=== PATIENT | female | born 2000 | race Caucasian/White ===

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

== ENCOUNTER 2018-02-07 00:32 | Emergency (ER) | payer BC ==
[~2018-02-07] VITALS: Ht 165.1 cm; Wt 56.2 kg
[~2018-02-07 00:32] MED LIST changes: -CEPH500C PO; -SULF800T23 PO
[2018-02-07 00:37] VITALS: TEMP 37.8; Ht 165.1 cm; Wt 56.2 kg
[2018-02-07] MEDS ORDERED: IBUPROFEN 600 MG TAB PO STA (00:56)
[2018-02-07] MEDS ORDERED: ACETAMINOPHEN 500 MG TAB PO STA (00:56)
[2018-02-07 02:35] VITALS: BP 99/52; PULSE 90; O2SAT 96
--- NOTE | 2018-02-07 04:10 | EMERGENCY ROOM VISIT NOTE ---
ED Visit Note First contact with patient: 00:46 CHIEF COMPLAINT: Sore throat HISTORY OF PRESENT ILLNESS: This 17-year-old female patient presents to the emergency department complaining of increasing pain in the throat for the past several hours, gradual in onset, worse with swallowing. They rate the pain as sharp and 7/10. They are able to swallow. The patient has had a low-grade fever at home today. No rash. Denies any posterior neck pain or stiffness. No difficulty breathing. Symptoms came on gradually. There has been no chest pain, no abdominal pain, no nausea or vomiting. Patient denies any cough, rhinorrhea, congestion, or ear pain. The patient has taken nothing for their symptoms. REVIEW OF SYSTEMS: A 6 system review of systems was completed with pertinent positives and negatives in the HPI. ALLERGIES: No known allergies MEDICATIONS: No chronic medications PMH: Otherwise healthy SOCIAL HISTORY: Employed and lives with family PHYSICAL EXAM: Vital Signs: Reviewed Nurse's notes GENERAL: White female, in no acute distress, non toxic in appearance, well developed, well nourished. MENTAL STATUS: Alert and oriented to person place and time. SKIN: Clear and dry, no eruptions, or rashes. No cyanosis, no petechiae. EARS: External auditory canals clear, tympanic membrane pearly shukla without erythema or effusion bilaterally. EYES: Pupils equal round and reactive to light and accommodation. Conjunctivae without injection, sclerae without icterus. Extraocular movements intact. NOSE: Patent, turbinates inflamed with no discharge. No sinus tenderness. MOUTH: Mucous membranes moist. Left tonsil is erythematous and 2+ enlarged. Right tonsil appears normal.. The Pharynx is inflamed and slightly swollen. Pharynx without postnasal drip. Uvula is midline and no abscess is seen. NECK: Supple without nuchal rigidity. Anterior cervical lymphadenopathy without posterior cervical, or auricular, or submandibular lymphadenopathy. HEART: Regular rate and rhythm without murmurs gallops or rubs. LUNGS: Clear to auscultation bilaterally without wheezes, rales or rhonchi. ABDOMEN: Positive bowel sounds x 4. Normal tympanic percussion. Soft, nontender, without masses or organomegaly. ED COURSE: I examined the patient who appears to have a sore throat. She was given ibuprofen and Tylenol here in the department. A rapid strep test was negative. A backup culture was sent. The patient was instructed on the plan below and was discharged home in good condition. Current/Historical Medications Scheduled [Oxy Face Wash], 1-2 APPLN TOP DAILY Allergies Coded Allergies: No Known Allergies (Unverified , 07/21/17) Vital Signs Date Time Temp Pulse Resp B/P (MAP) Pulse Ox O2 Delivery O2 Flow Rate FiO2 02/07/18 02:35 90 18 99/52 96 02/07/18 00:39 97 Room Air 02/07/18 00:37 37.8 103 16 131/75 97 Room Air Medications Administered Medications (Trade) Dose Ordered Sig/Jaswant Route Start Time Stop Time Status Last Admin Dose Admin Acetaminophen (Tylenol Tab) 1,000 mg NOW STAT PO 02/07/18 00:56 02/07/18 00:58 DC 02/07/18 01:10 1,000 MG Ibuprofen (Motrin Tab) 600 mg NOW STAT PO 02/07/18 00:56 02/07/18 00:58 DC 02/07/18 01:09 600 MG Departure Information Impression Primary Impression: Sore throat Dispostion Home / Self-Care Condition GOOD Forms HOME CARE DOCUMENTATION FORM, Work Instructions, Additional Instructions: Patient was seen and evaluated today in the emergency department fo medical care. Return to work on 02/10/2018. Please excuse. IMPORTANT VISIT INFORMATION Patient Instructions My [facility] Additional Instructions You were seen and evaluated today on an emergency basis only. This is not a substitute for, or an effort to provide, complete comprehensive medical care. It is not possible to recognize and treat all injuries or illnesses in a single emergency department visit. For this reason it is recommended that you followup with your primary care physician next week with any ongoing or persistent symptoms. For baseline pain relief you may alternate ibuprofen and acetaminophen every 4 hours for pain control. Take 600 mg ibuprofen (Advil) and then 4 hours later take 1000 mg acetaminophen (Tylenol). Do not take more than 3000 mg acetaminophen in a single day. You are welcome to return to the emergency department anytime with new, worsening, or concerning symptoms. Work Instructions Additional Work Instructions: Patient was seen and evaluated today in the emergency department for medical care. Return to work on 02/10/2018. Please excuse.
[2018-02-08] MEDS ORDERED: CLIN300C2 PO (00:25)
[2018-02-08] MEDS ORDERED: PRED50TA PO (00:25)
== END 2018-02-07 02:36 | disposition home or self-care (01) ==
LOC: C.EDB 00:33
DX: J02.9 Acute pharyngitis, unspecified (principal)

== ENCOUNTER 2018-02-07 21:56 | Emergency (ER) | payer BC ==
[~2018-02-07] VITALS: Ht 165.1 cm; Wt 55.6 kg
[2018-02-07 22:02] VITALS: Ht 165.1 cm; Wt 55.6 kg
[2018-02-07] MEDS ORDERED: ACETAMINOPHEN 500 MG TAB PO STA (22:29)
[2018-02-07] MEDS ORDERED: DEXAMETHASONE SOD INJ 4 MG/ML VIAL IV STA (22:29)
[2018-02-07] MEDS ORDERED: MAGIC SWIZZLE PO STA (22:29)
[2018-02-07] MEDS ORDERED: KETOROLAC TROMETHAMINE 30 MG/ML VIAL IV STA (22:29)
[2018-02-07] MEDS ORDERED: CLINDAMYCIN IV 900 MG in DEXTROSE 5% 100ML 100 ML IV ONE (22:30)
[2018-02-07] MEDS ORDERED: SODIUM CHLORIDE 0.9% 1000ML 1,000 ML IV ONE (22:30)
--- NOTE | 2018-02-07 22:34 | EMERGENCY ROOM VISIT NOTE ---
History First contact with patient: 22:17 Chief Complaint: SORETHROAT Stated Complaint: SWOLLEN TONSILS,PAIN,FEVER,SLIGHT DIFFICULTY BREAT History of Present Illness The patient is a 17 year old female who presents to the Emergency Room with complaints of a severe sore throat that started yesterday morning. This patient was seen in the emergency department last night for the same symptoms. She was swabbed for strep. It was negative. She was instructed to take ibuprofen and Tylenol. The patient took ibuprofen 400 mg a few hours ago with no relief. The pain is getting severe. She has associated body aches and a headache. She also feels like she is running a fever, she did not take her temperature at home. Review of Systems 10 system review performed and negative unless noted in HPI or below Past Medical/Surgical History Medical Problems: (1) No significant past medical history Social History Smoking Status: Never Smoker Alcohol Use: none Drug Use: none Marital Status: single Housing Status: lives with family Occupation Status: [employer] student Current/Historical Medications Scheduled Clindamycin Hcl (Cleocin), 300 MG PO QID Prednisone (Prednisone), 50 MG PO DAILY Physical Exam Vital Signs Date Time Temp Pulse Resp B/P (MAP) Pulse Ox O2 Delivery O2 Flow Rate FiO2 02/08/18 00:34 96 18 112/68 98 Room Air 02/07/18 23:50 37.2 91 20 113/60 98 Room Air 02/07/18 22:02 38.6 113 20 114/74 96 Room Air Physical Exam GENERAL: 17-year-old female, in moderate discomfort,, in no acute distress, nondiaphoretic, well-developed well-nourished. SKIN: The skin was without rashes, erythema, edema, or bruising. HEAD: Normocephalic atraumatic. EARS: External auditory canals clear, tympanic membranes pearly shukla without erythema or effusion bilaterally. EYES: . Conjunctivae without injection, sclerae without icterus. MOUTH: Mucous membranes slightly dry. The tonsils are moderately enlarged, left greater than right. There is significant amount of white exudate particularly on the left tonsil. There is also some brown exit noted on this tonsil. There is no soft palate involvement. Uvula midline. Airway patent. Tongue does not deviate. There is no trismus. No hot potato voice. NECK: Supple without nuchal rigidity. Lymphadenopathy noted in the anterior cervical chain bilaterally. Cervical spine is nontender. No JVD. HEART: Regular rate and rhythm without murmurs gallops or rubs. LUNGS: Clear to auscultation bilaterally without wheezes, rales or rhonchi. No accessory muscle use. ABDOMEN: Positive bowel sounds x 4.Soft, nontender, without organomegaly. No guarding or rebound tenderness. MUSCULOSKELETAL: No muscle atrophy, erythema, or edema noted. Strength 5/5 throughout. NEURO: Patient was alert and oriented to person place and time. Normal sensation to touch. No focal neurological deficits. Medical Decision & Procedures Laboratory Results 02/07/18 22:35 Red Blood Count 4.37, Mean Corpuscular Volume 77.6, Mean Corpuscular Hemoglobin 25.4, Mean Corpuscular Hemoglobin Concent 32.7, Mean Platelet Volume 9.3, Neutrophils (%) (Auto) 87.7, Lymphocytes (%) (Auto) 3.1, Monocytes (%) (Auto) 8.8, Eosinophils (%) (Auto) 0.0, Basophils (%) (Auto) 0.1, Neutrophils # (Auto) 19.86, Lymphocytes # (Auto) 0.71, Monocytes # (Auto) 2.00, Eosinophils # (Auto) 0.00, Basophils # (Auto) 0.03 02/07/18 22:35 Test 02/07/18 22:35 White Blood Count 22.67 K/uL (4.8-10.8) Red Blood Count 4.37 M/uL (4.2-5.4) Hemoglobin 11.1 g/dL (12.0-16.0) Hematocrit 33.9 % (37-47) Mean Corpuscular Volume 77.6 fL (80-100) Mean Corpuscular Hemoglobin 25.4 pg (25-34) Mean Corpuscular Hemoglobin Concent 32.7 g/dl (32-36) Platelet Count 285 K/uL (130-400) Mean Platelet Volume 9.3 fL (7.4-10.4) Neutrophils (%) (Auto) 87.7 % Lymphocytes (%) (Auto) 3.1 % Monocytes (%) (Auto) 8.8 % Eosinophils (%) (Auto) 0.0 % Basophils (%) (Auto) 0.1 % Neutrophils # (Auto) 19.86 K/uL (1.4-6.5) Lymphocytes # (Auto) 0.71 K/uL (1.2-3.4) Monocytes # (Auto) 2.00 K/uL (0.11-0.59) Eosinophils # (Auto) 0.00 K/uL (0-0.5) Basophils # (Auto) 0.03 K/uL (0-0.2) RDW Standard Deviation 45.7 fL (36.4-46.3) RDW Coefficient of Variation 16.0 % (11.5-14.5) Immature Granulocyte % (Auto) 0.3 % Immature Granulocyte # (Auto) 0.07 K/uL (0.00-0.02) Urine Test NEG (NEG) Anion Gap 7.0 mmol/L (3-11) Est Creatinine Clear Calc Drug Dose 77.9 ml/min Estimated GFR () 92.3 Estimated GFR (Non- 79.7 BUN/Creatinine Ratio 7.5 (10-20) Calcium Level 8.8 mg/dl (8.5-10.1) Total Bilirubin 0.8 mg/dl (0.2-1) Aspartate Amino Transf (AST/SGOT) 11 U/L (15-37) Alanine Aminotransferase (ALT/SGPT) 16 U/L (12-78) Alkaline Phosphatase 55 U/L (45-117) Total Protein 8.0 gm/dl (6.4-8.2) Albumin 3.9 gm/dl (3.4-5.0) Globulin 4.1 gm/dl (2.5-4.0) Albumin/Globulin Ratio 1.0 (0.9-2) Monoscreen NEG (NEG) Medications Administered Medications (Trade) Dose Ordered Sig/Jaswant Route Start Time Stop Time Status Last Admin Dose Admin Sodium Chloride 1,000 ml @ 999 mls/hr Q1H1M ONCE IV 02/07/18 22:30 02/07/18 23:30 DC 02/07/18 22:40 999 MLS/HR Ketorolac Tromethamine (Toradol Inj) 30 mg NOW STAT IV 02/07/18 22:29 02/07/18 22:31 DC 02/07/18 22:43 30 MG Clindamycin Phosphate 900 mg/ Dextrose 106 ml @ 100 mls/hr ONE ONCE IV 02/07/18 22:30 02/07/18 23:33 DC 02/07/18 22:54 100 MLS/HR Acetaminophen (Tylenol Tab) 1,000 mg NOW STAT PO 02/07/18 22:29 02/07/18 22:31 DC 02/07/18 22:41 1,000 MG Dexamethasone Sodium Phosphate (Decadron Inj) 10 mg NOW STAT IV 02/07/18 22:29 02/07/18 22:31 DC 02/07/18 22:40 10 MG ED Course Patient was seen and examined Vital signs including blood pressure were reviewed medications list was verified with patient Labs were obtained, and a saline lock was established The patient was medicated with Toradol 30 mg IV, Tylenol 1 g p.o., Decadron 10 mg IV and Magic swizzle. She was hydrated with 1 L of normal saline. Upon reevaluation, the patient was feeling much better. We discussed the results of her workup. She voiced understanding. She was comfortable being discharged home. The patient was also discussed with my supervising physician who is in agreement with my plan I reviewed discharge instructions the patient. They voiced understanding and had no further questions. Medical Decision Differential diagnosis: Bacterial tonsillitis, peritonsillar abscess, mononucleosis, other viral tonsillitis, This patient is a 17-year-old female returns to the emergency department with a worsening sore throat for the last day. The patient was seen in the emergency department last night. A strep culture was taken. The rapid test was negative. She was instructed to do supportive care and follow-up with her primary care physician. The patient returned today because of the severity of the sore throat and fever. On exam, her left tonsil was significantly enlarged with large amount of exudate. There was however no signs of a peritonsillar abscess systems trismus, swelling of the soft palate or hot potato voice. Her mononucleosis is negative. I believe this is likely a bacterial tonsillitis. She was treated with clindamycin IV in the emergency department. She had fairly good pain relief in the ER, was comfortable that she could tolerate her medications and liquids at home. For this reason, the patient was discharged home, with instructions to return to the emergency department in 24-48 hours for recheck. She agrees to return sooner for any worsening symptoms. This chart was completed in part utilizing [employer] Speech Voice Recognition software. Attempts were made to minimize the grammatical errors, random word insertions, pronoun errors and incomplete sentences. Any formal questions or concerns about the content, text or information contained within the body of this dictation should be directly addressed to the provider for clarification. Medication Reconcilliation Current Medication List: was personally reviewed by me Blood Pressure Screening Patient's blood pressure: Normal blood pressure Impression Primary Impression: Acute bacterial tonsillitis Departure Information Dispostion Home / Self-Care Condition GOOD Prescriptions Prednisone (Prednisone) 50 Mg Tab 50 MG PO DAILY for 4 Days, #4 TAB Prov: Hanna Cohen PA-C 02/08/18 Clindamycin Hcl (CLEOCIN) 300 Mg Cap 300 MG PO QID for 9 Days, #36 CAP Prov: Hanna Cohen PA-C 02/08/18 Referrals No Doctor, Assigned (PCP) Patient Instructions My [facility] Additional Instructions You have been evaluated in the emergency department for severe sore throat. This is likely due to acute bacterial tonsillitis. Please increase fluids over the next several days. Please take the entire course of clindamycin as prescribed. Please eat yogurt twice daily with this medication. Please also take the entire course of prednisone as prescribed Ibuprofen 800 mg and/or Tylenol 1000 mg every 8 hours. You may also alternate these medications for more effective pain relief: Ibuprofen --4 HRS--> Tylenol --4 HRS--> ibuprofen --4 HRS--> Tylenol .... Please return to the emergency department in 24-48 hours for recheck if you are not feeling any better. If you have any new or worsening symptoms such as inability to swallow liquids or medications, please return to the emergency department sooner. It has been a pleasure participating in your care this year Work Instructions Return To Work: 1 day
[2018-02-07 23:01] LABS: BASO % 0.1 %; BASO ABS # 0.03 K/uL (0-0.2); HEMATOCRIT 33.9 % (37-47); HEMOGLOBIN 11.1 g/dL (12.0-16.0); IG# 0.07 K/uL (0.00-0.02); LYMPH % 3.1 %; LYMPH ABS # 0.71 K/uL (1.2-3.4); MEAN CELL VOLUME 77.6 fL (80-100); MEAN CORPUSCULAR HEMOGLOBIN 25.4 pg (25-34); MEAN CORPUSCULAR HGB CONC 32.7 g/dl (32-36); MEAN PLATELET VOLUME 9.3 fL (7.4-10.4); MONO % 8.8 %; NEUT % 87.7 %; NEUT ABS # 19.86 K/uL (1.4-6.5); PLATELET COUNT 285 K/uL (130-400); RED CELL DISTRIBUTION WIDTH SD 45.7 fL (36.4-46.3); WHITE BLOOD COUNT 22.67 K/uL (4.8-10.8)
[2018-02-07 23:23] LABS: ALBUMIN 3.9 gm/dl (3.4-5.0); CALCIUM 8.8 mg/dl (8.5-10.1); CREATININE 1.02 mg/dl (0.60-1.20); POTASSIUM 3.4 mmol/L (3.5-5.1)
[2018-02-07 23:50] VITALS: TEMP 37.2
[2018-02-08] MEDS ORDERED: CLIN300C2 PO (00:25)
[2018-02-08] MEDS ORDERED: PRED50TA PO (00:25)
[2018-02-08 00:34] VITALS: BP 112/68; PULSE 96; O2SAT 98
== END 2018-02-08 00:36 | disposition home or self-care (01) ==
LOC: C.EDB 21:58 → C.EDC 02-08 00:36
DX: J03.90 Acute tonsillitis, unspecified (principal)

== ENCOUNTER 2022-01-13 01:15 | Inpatient (IN) ==
[2022-01-13 01:40] LABS: Appearance Urine Clear (Clear); Bilirubin Urine Negative (Negative); Blood Urine Negative (Negative); Color Urine Yellow; Glucose Urine UA Negative (Negative); Ketones Urine Trace (Negative); Leukocyte Esterase Urine Negative (Negative); Nitrite Urine Negative (Negative); Protein Urine Negative (Negative); Specific Gravity Urine 1.023 (1.000-1.030); Urobilinogen Urine Negative (Negative); pH Urine 6.5 (4.5-7.5)
[2022-01-13 02:01] LABS: Amphetamines+Metham, Urine Neg (Neg); Barbiturates, Urine Neg (Neg); Benzodiazepine, Urine Neg (Neg); Cocaine, Urine Neg (Neg); MDMA (Ecstacy), Urine Neg (Neg); Methadone, Urine Neg (Neg); Opiate, Urine Neg (Neg); Phencyclidine, Urine Neg (Neg)
[2022-01-13] MEDS ORDERED: LIDO/EPINEPHRINE/SOD BICARB 20 ML VIAL ONE (02:13)
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
[2022-01-13] MEDS ORDERED: LORazepam 1 MG TAB SL STA (03:19)
[2022-01-13 03:30] LABS: Basophils # (auto) 0.05 K/uL (0-0.2); Basophils % (auto) 0.5 %; Eosinophils # (auto) 0.11 K/uL (0-0.5); Eosinophils % (auto) 1.2 %; Hematocrit (blood only) 41.4 % (37-47); Hemoglobin 13.8 g/dL (12.0-16.0); Immature Granulocytes # (auto) 0.01 K/uL (0.00-0.02); Immature Granulocytes % (auto) 0.1 %; Lymphocytes # (auto) 2.29 K/uL (1.2-3.4); Lymphocytes % (auto) 24.7 %; Mean Corpuscular Hemoglobin 29.1 pg (25-34); Mean Corpuscular Hgb Conc 33.3 g/dL (32-36); Mean Corpuscular Volume 87.2 fL (80-100); Mean Platelet Volume 9.4 fL (7.4-10.4); Monocytes # (auto) 0.66 K/uL (0.11-0.59); Monocytes % (auto) 7.1 %; Neutrophils # (auto) 6.15 K/uL (1.4-6.5); Neutrophils % (auto) 66.4 %; Platelet Count 226 K/uL (130-400); RDW Coefficient of Variation 12.6 % (11.5-14.5); RDW Standard Deviation 40.4 fL (36.4-46.3); Red Blood Count 4.75 M/uL (4.2-5.4); White Blood Count 9.27 K/uL (4.8-10.8)
[2022-01-13 03:48] LABS: Pregnancy Test, Serum Negative (Negative)
[2022-01-13 03:52] LABS: Acetaminophen < 3 ug/ml (10-30); Salicylate < 3.0 mg/dl (3.0-30)
[2022-01-13 03:53] LABS: Albumin Globulin Ratio 1.8 (0.9-2); Albumin Level 4.6 gm/dl (3.4-5.0); BUN Creatinine Ratio 10.1 (10-20); Bilirubin,Total 0.6 mg/dl (0.2-1.0); Calcium 9.3 mg/dl (8.5-10.1); Creatinine Clr Calc Pharmacy 99.7 ml/min; Est GFR (African American) 122.3 ml/min; Est GFR (Non-African American) 105.5 ml/min; Globulin 2.5 gm/dl (2.5-4.0); Potassium 3.8 mmol/L (3.5-5.1); Total Protein 7.1 gm/dl (6.0-8.3)
[2022-01-13 08:54] VITALS: O2SAT 99
--- NOTE | 2022-01-13 09:23 | Emergency Department Note ---
ED Visit Note The patient was accepted at [facility] . : Depression Qualifiers: Depression Type: unspecified Qualified Code(s): F32.A - Depression, unspecified
[2022-01-13] MEDS ORDERED: BISMUTH SUBSALICYLATE LIQD 236 ML PO PRN (09:24)
[2022-01-13] MEDS ORDERED: ALUMINUM/MAGNESIUM SUSP 30 ML UDC PO PRN (09:24)
[2022-01-13] MEDS ORDERED: hydrOXYzine HCl 25 MG TAB PO PRN (09:24)
[2022-01-13] MEDS ORDERED: MAGNESIUM HYDROXIDE SUSP 30 ML UDC PO PRN (09:24)
[2022-01-13] MEDS ORDERED: SODIUM CHLORIDE 0.65% NA SOLN 45 ML (OCEAN) PRN (09:24)
[2022-01-13] MEDS ORDERED: ACETAMINOPHEN 325 MG TAB PO PRN (09:24)
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
[2022-01-13] MEDS: hydrOXYzine HCl 25 MG TAB PO PRN (21:38)
[2022-01-14] MEDS: FLUoxetine HCL 10 MG CAP PO SCH (09:47)
--- NOTE | 2022-01-14 14:02 | Psychiatric Progress Note ---
Date of Service January 14, 2022 Impression / Recommendations Impression The patient is a 21 year old with a history of MDD, CECY with panic attacks, OCD, PTSD and self-harm who was admitted for suicide attempt via cutting requiring sutures. Diagnostically consistent with prior established diagnoses, with worsening of MDD and PTSD in the context of recent stressors and inability to attend therapy due to insurance changes. The patient is deemed unstable and requires psychiatric hospitalization for diagnostic clarification, safety and stabilization, medication management and development of further coping skills. 01/14/22: Adjusting to the unit but experiencing significant social anxiety as well as ongoing depression and anxiety and today's date brings up significant trauma memories and PTSD. Tolerating fluoxetine initiation. Will start prazosin tonight to see if this helps with reducing nightmares and with sleep. (1) Multiple lacerations: (2) Suicidal ideation: (3) Major depressive disorder, recurrent episode with anxious distress: (4) Generalized anxiety disorder with panic attacks: (5) Obsessive compulsive disorder: (6) Post traumatic stress disorder (PTSD): 01/14/22: Started fluoxetine 10mg qd, prazosin 1mg qhs. Working on getting her re-established with outpatient therapy. 01/13/22: The patient was admitted to the [facility] ([facility] mental health unit) on q15 min checks (behavioral with suicide precautions) for safety. The patient will participate in group, recreational, and milieu therapies and will be offered additional individual and family sessions as clinically appropriate. -fluoxetine 10mg qd -prazosin 1mg qhs Inventory Assets Strengths: motivated to engage with outpatient therapy, employed, no substance use Needs: additional coping skills, medication management Risk Factors Assessment Male: No : Yes Do You Have Access To A Gun?: No Health Problems: No Mental Health Diagnoses: Yes Substance Use Disorders: No Previous Attempt: Yes Previous Attempt; Didn't Tell Anyone: Yes Family History of Suicide: No Previous Psychiatric Hospitalization: No Hopelessness: Yes Smoker: No Protective Factors Assessment Employed: Yes ([employer]) Stable Relationships: Yes Supportive Family: No Interval History Identifying Information RUBENS ELLISON is a 21-year-old woman who currently lives in [place] with her roommate and his family, has a history of self-harm, depression, CECY, OCD, PTSD and was admitted on 01/13/22 08:49 on a 201 voluntary commitment for suicide attempt via cutting with lacerations requiring sutures. Chief Complaint "I'm pretty overwhelmed". Review of Systems Sleep Information Total Hours of Sleep: 6 Meal Information Percent Meal Consumed - Breakfast: 80 Percent Meal Consumed - Lunch: 85 Percent Meal Consumed - Dinner: 100 Subjective Subjective Patient was seen & assessed and interval progress reviewed with treatment team nursing and social work. Tearful last night regarding stressors of finances and limited housing options. Attending groups. Took prn vistaril last night for help with sleep. Today is anniversary related to past trauma which contributes to experiencing a lot of different emotions. Continues to feel very anxious and depressed but denies urges for self-harm and denies SI today. Started fluoxetine and no side effects so far. Nursing helped her change and re-bandage lacerations which are starting to heal but still open with some serosanguineous drainage. She denies any pain or redness related to lacerations except some stinging with ceratin movements of her forearm. Physical Exam Psychiatric Orientation: alert and oriented x 3 Apperance: appropriately dressed and appropriately groomed Eye Contact: + fair eye contact Motor Behavior: steady gait and station and no abnormal motor movements Speech: normal rate/rhythm/volume of speech Affect: + depressed affect, + anxious affect and + tearful affect Mood: + depressed mood and + anxious mood Thought Process: goal directed thought process Thought Content: reality based without delusions Suicidal Thoughts: denies suicidal thoughts Homicidal Thoughts: denies homicidal thoughts Hallucinations: no auditory hallucinations and no visual hallucinations Cognition: recent memory grossly intact, remote memory grossly intact, attention grossly intact and language grossly intact Estimated Intelligence: consistent with education level Insight: + fair insight Judgement: + fair judgement Vital Signs (Past 24 Hours) Last Vital Signs Temp 36.8 C 01/14/22 06:51 Pulse 123 H 01/14/22 06:52 Resp 16 01/14/22 06:51 BP 105/70 01/14/22 06:52 Pulse Ox 99 01/13/22 11:10 Results & Data ([facility]) Current Inpatient Medications Current Inpatient Medications: Current Inpatient Medications Acetaminophen (Acetaminophen 325 Mg Tab) 650 mg PO Q4H PRN PRN Reason: Headache or Minor Fever Stop: 02/12/22 09:23 Al Hydrox/Mg Hydrox/Simethicone (Aluminum/Magnesium Susp 30 Ml Udc) 30 ml PO Q4H PRN PRN Reason: GI Upset Stop: 02/12/22 09:23 Bismuth Subsalicylate (Bismuth Subsalicylate Liqd 236 Ml) 15 ml PO PRN PRN PRN Reason: Loose Stool Stop: 02/12/22 09:23 Fluoxetine HCl (Fluoxetine Hcl 10 Mg Cap) 10 mg PO QAM MAYCOL Stop: 02/13/22 09:14 Last Admin: 01/14/22 09:47 Dose: 10 mg Documented by: Hydroxyzine HCl (Hydroxyzine Hcl 25 Mg Tab) 50 mg PO HSZ PRN PRN Reason: Insomnia Stop: 02/12/22 09:23 Last Admin: 01/13/22 21:38 Dose: 50 mg Documented by: Hydroxyzine HCl (Hydroxyzine Hcl 25 Mg Tab) 25 mg PO Q4H PRN PRN Reason: Anxiety Stop: 02/12/22 09:23 Magnesium Hydroxide (Magnesium Hydroxide Susp 30 Ml Udc) 30 ml PO DAILY PRN PRN Reason: Constipation Stop: 02/12/22 09:23 Prazosin HCl (Prazosin Hcl 1 Mg Cap) 1 mg PO HS MAYCOL Stop: 02/13/22 21:59 Sodium Chloride (Sodium Chloride 0.65% Na Soln 45 Ml ([place])) 1 - 2 sprays NA PRN PRN PRN Reason: Nasal Dryness/Congestion Stop: 02/12/22 09:23 Mental Health & Subst Abuse Tx Therapist Name of Therapist: [facility] Post Discharge Appointments Primary Care Physician Name Of Family Doctor: [facility] Date of Appointment with PCP: 01/21/22 Time of Appointment with PCP: 9am Provider Appointment Comment: [place] [id number]
[2022-01-14] MEDS ORDERED: PRAZOSIN HCL 1 MG CAP PO SCH (22:00)
[2022-01-14] MEDS: hydrOXYzine HCl 25 MG TAB PO PRN (23:22)
[2022-01-15] MEDS: FLUoxetine HCL 10 MG CAP PO SCH (09:01)
--- NOTE | 2022-01-15 15:48 | Psychiatric Progress Note ---
Date of Service January 15, 2022 Impression / Recommendations Impression The patient is a 21 year old with a history of MDD, CECY with panic attacks, OCD, PTSD and self-harm who was admitted for suicide attempt via cutting requiring sutures. Diagnostically consistent with prior established diagnoses, with worsening of MDD and PTSD in the context of recent stressors and inability to attend therapy due to insurance changes. The patient is deemed unstable and requires psychiatric hospitalization for diagnostic clarification, safety and stabilization, medication management and development of further coping skills. 01/15/22: less anxiety today but continuing to endorse significant depression with tearfulness and intermittent SI. Tolerating fluoxetine and consents to further titration to 20mg qAM. She would like to discontinue prazosin. Discussed other options for insomnia and she would like to try trazodone. Reviewed risks/benefits/alternatives including but not limited to sedation, dry mouth, dizziness. She consents to starting trazodone. (1) Multiple lacerations: (2) Suicidal ideation: (3) Major depressive disorder, recurrent episode with anxious distress: (4) Generalized anxiety disorder with panic attacks: (5) Obsessive compulsive disorder: (6) Post traumatic stress disorder (PTSD): 01/15/22: Increase fluoxetine to 20mg qd tomorrow. Discontinue prazosin given concern for hypotension and ineffectiveness. Start trazodone 50mg qhs for insomnia. 01/14/22: Started fluoxetine 10mg qd, prazosin 1mg qhs. Working on getting her re-established with outpatient therapy. 01/13/22: The patient was admitted to the [facility] ([facility] mental health unit) on q15 min checks (behavioral with suicide precautions) for safety. The patient will participate in group, recreational, and milieu therapies and will be offered additional individual and family sessions as clinically appropriate. -fluoxetine 10mg qd -prazosin 1mg qhs Inventory Assets Strengths: motivated to engage with outpatient therapy, employed, no substance use Needs: additional coping skills, medication management Risk Factors Assessment Male: No : Yes Do You Have Access To A Gun?: No Health Problems: No Mental Health Diagnoses: Yes Substance Use Disorders: No Previous Attempt: Yes Previous Attempt; Didn't Tell Anyone: Yes Family History of Suicide: No Previous Psychiatric Hospitalization: No Hopelessness: Yes Smoker: No Protective Factors Assessment Employed: Yes ([employer]) Stable Relationships: Yes Supportive Family: No Interval History Identifying Information RUBENS ELLISON is a 21-year-old woman who currently lives in [place] with her roommate and his family, has a history of self-harm, depression, CECY, OCD, PTSD and was admitted on 01/13/22 08:49 on a 201 voluntary commitment for suicide attempt via cutting with lacerations requiring sutures. Chief Complaint "The group this afternoon helped me, to admit that I'm here because I tried to kill myself". Review of Systems Sleep Information Total Hours of Sleep: 8.5 Meal Information Percent Meal Consumed - Breakfast: 100 Percent Meal Consumed - Lunch: 70 Percent Meal Consumed - Dinner: 95 Subjective Subjective Patient was seen & assessed and interval progress reviewed with treatment team nursing and social work. Therese was more withdrawn, flat and isolated last night with periods of tearfulness. Today she reports ongoing periods of intermittent SI which makes her tearful at times as she reflects that she wishes she could "just smile about the sound of the rain and not always be thinking these thoughts". Reviewed ways that trauma has impacted her and ways to challenge the intrusive thoughts. She is tolerating the fluoxetine well without any side effects except for mild DAVID though she thinks the headache could be due to crying. She didn't find that the prazosin helped her fall asleep, still need atarax prn, and then felt lightheaded when she went to the bathroom overnight. She's prefer to try something else that is more sedating as frequent awakenings are more disruptive than the nightmares. Physical Exam Psychiatric Orientation: alert and oriented x 3 Apperance: appropriately dressed and appropriately groomed Eye Contact: + fair eye contact Motor Behavior: steady gait and station and no abnormal motor movements Speech: normal rate/rhythm/volume of speech Affect: + depressed affect, + anxious affect and + tearful affect Mood: + depressed mood and + anxious mood Thought Process: goal directed thought process Thought Content: reality based without delusions Suicidal Thoughts: denies suicidal plan and denies suicidal intent; + reports suicidal thoughts Homicidal Thoughts: denies homicidal thoughts Hallucinations: no auditory hallucinations and no visual hallucinations Cognition: recent memory grossly intact, remote memory grossly intact, attention grossly intact and language grossly intact Estimated Intelligence: consistent with education level Insight: + fair insight Judgement: + fair judgement Vital Signs (Past 24 Hours) Last Vital Signs Temp 36.8 C 01/15/22 06:57 Pulse 81 01/15/22 06:58 Resp 16 01/15/22 06:57 BP 80/56 L 01/15/22 06:58 Pulse Ox 99 01/13/22 11:10 Results & Data ([facility]) Current Inpatient Medications Current Inpatient Medications: Current Inpatient Medications Acetaminophen (Acetaminophen 325 Mg Tab) 650 mg PO Q4H PRN PRN Reason: Headache or Minor Fever Stop: 02/12/22 09:23 Al Hydrox/Mg Hydrox/Simethicone (Aluminum/Magnesium Susp 30 Ml Udc) 30 ml PO Q4H PRN PRN Reason: GI Upset Stop: 02/12/22 09:23 Bismuth Subsalicylate (Bismuth Subsalicylate Liqd 236 Ml) 15 ml PO PRN PRN PRN Reason: Loose Stool Stop: 02/12/22 09:23 Fluoxetine HCl (Fluoxetine Hcl 10 Mg Cap) 10 mg PO QAM MAYCOL Stop: 02/13/22 09:14 Last Admin: 01/15/22 09:01 Dose: 10 mg Documented by: Hydroxyzine HCl (Hydroxyzine Hcl 25 Mg Tab) 50 mg PO HSZ PRN PRN Reason: Insomnia Stop: 02/12/22 09:23 Last Admin: 01/14/22 23:22 Dose: 50 mg Documented by: Hydroxyzine HCl (Hydroxyzine Hcl 25 Mg Tab) 25 mg PO Q4H PRN PRN Reason: Anxiety Stop: 02/12/22 09:23 Magnesium Hydroxide (Magnesium Hydroxide Susp 30 Ml Udc) 30 ml PO DAILY PRN PRN Reason: Constipation Stop: 02/12/22 09:23 Prazosin HCl (Prazosin Hcl 1 Mg Cap) 1 mg PO HS MAYCOL Stop: 02/13/22 21:59 Last Admin: 01/14/22 21:38 Dose: 1 mg Documented by: Sodium Chloride (Sodium Chloride 0.65% Na Soln 45 Ml ([place])) 1 - 2 sprays NA PRN PRN PRN Reason: Nasal Dryness/Congestion Stop: 02/12/22 09:23 Mental Health & Subst Abuse Tx Psychiatrist Name of Psychiatrist: Bessy Florentino Psychiatrist's Date of Appointment with Psychiatrist: 02/13/22 Time of Appointment with Psychiatrist: 12:45pm Therapist Name of Therapist: [facility] Post Discharge Appointments Primary Care Physician Name Of Family Doctor: [facility] Date of Appointment with PCP: 01/21/22 Time of Appointment with PCP: 9am Provider Appointment Comment: [address] [place] [id number]
[2022-01-15] MEDS ORDERED: traZODone HCL 50 MG TAB PO SCH (22:00)
[2022-01-16] MEDS: FLUoxetine HCL 20 MG CAP PO SCH (09:14)
--- NOTE | 2022-01-16 16:26 | Psychiatric Progress Note ---
Date of Service January 16, 2022 Impression / Recommendations Impression The patient is a 21 year old with a history of MDD, CECY with panic attacks, OCD, PTSD and self-harm who was admitted for suicide attempt via cutting requiring sutures. Diagnostically consistent with prior established diagnoses, with worsening of MDD and PTSD in the context of recent stressors and inability to attend therapy due to insurance changes. The patient is deemed unstable and requires psychiatric hospitalization for diagnostic clarification, safety and stabilization, medication management and development of further coping skills. 01/16/22: less anxiety today but continuing to endorse significant depression with tearfulness. Tolerating fluoxetine now at effective dose. She had some side effects to trazodone so will discontinue. Discussed sleep hygiene strategies in detail which she agrees to try tonight and reviewed medication options and she consented to starting mirtazapine, reviewed risks/benefits/alternatives including but not limited to sedation/dizziness/dry mouth/increased appetite. (1) Multiple lacerations: (2) Suicidal ideation: (3) Major depressive disorder, recurrent episode with anxious distress: (4) Generalized anxiety disorder with panic attacks: (5) Obsessive compulsive disorder: (6) Post traumatic stress disorder (PTSD): 01/16/22: Continue fluoxetine. Discontinued trazodone. Start mirtazapine 7.5 mg qhs. Reviewed sleep hygiene strategies. 01/15/22: Increase fluoxetine to 20mg qd tomorrow. Discontinue prazosin given concern for hypotension and ineffectiveness. Start trazodone 50mg qhs for insomnia. 01/14/22: Started fluoxetine 10mg qd, prazosin 1mg qhs. Working on getting her re-established with outpatient therapy. 01/13/22: The patient was admitted to the [facility] ([facility] mental health unit) on q15 min checks (behavioral with suicide precautions) for safety. The patient will participate in group, recreational, and milieu therapies and will be offered additional individual and family sessions as clinically appropriate. -fluoxetine 10mg qd -prazosin 1mg qhs Inventory Assets Strengths: motivated to engage with outpatient therapy, employed, no substance use Needs: additional coping skills, medication management Risk Factors Assessment Male: No : Yes Do You Have Access To A Gun?: No Health Problems: No Mental Health Diagnoses: Yes Substance Use Disorders: No Previous Attempt: Yes Previous Attempt; Didn't Tell Anyone: Yes Family History of Suicide: No Previous Psychiatric Hospitalization: No Hopelessness: Yes Smoker: No Protective Factors Assessment Employed: Yes ([employer]) Stable Relationships: Yes Supportive Family: No Interval History Identifying Information RUBENS ELLISON is a 21-year-old woman who currently lives in [place] with her roommate and his family, has a history of self-harm, depression, CECY, OCD, PTSD and was admitted on 01/13/22 08:49 on a 201 voluntary commitment for suicide attempt via cutting with lacerations requiring sutures. Chief Complaint "I'm feeling more settled". Review of Systems Sleep Information Total Hours of Sleep: 6 Sleep Comments: pt given trazodone per rn. pt on q-15 minute checks Meal Information Percent Meal Consumed - Breakfast: 75 Percent Meal Consumed - Lunch: 75 Percent Meal Consumed - Dinner: 90 Subjective Subjective Patient was seen & assessed and interval progress reviewed with treatment team nursing and social work. Remains intermittently tearful at times, still having some intrusive thoughts but denies any SI today. She felt somewhat sedated with the trazodone but still felt like her mind was "very active and almost fighting the effects" and she wonders if it contributed to her developing a headache. She would prefer to try something else to help with sleep. Tolerating higher dose of fluoxetine without any side effects except mild headache which she feels is tolerable and for which she hasn't requested any prn pain medications. Continues to feel she would struggle to remain safe outside of the hospital. Physical Exam Psychiatric Orientation: alert and oriented x 3 Apperance: appropriately dressed and appropriately groomed Eye Contact: + fair eye contact Motor Behavior: steady gait and station and no abnormal motor movements Speech: normal rate/rhythm/volume of speech Affect: + depressed affect, + anxious affect and + tearful affect Mood: + depressed mood and + anxious mood Thought Process: goal directed thought process Thought Content: reality based without delusions Suicidal Thoughts: denies suicidal thoughts, denies suicidal plan and denies suicidal intent Homicidal Thoughts: denies homicidal thoughts Hallucinations: no auditory hallucinations and no visual hallucinations Cognition: recent memory grossly intact, remote memory grossly intact, attention grossly intact and language grossly intact Estimated Intelligence: consistent with education level Insight: + fair insight Judgement: + fair judgement Vital Signs (Past 24 Hours) Last Vital Signs Temp 36.8 C 01/16/22 06:41 Pulse 78 01/16/22 06:42 Resp 16 01/16/22 06:41 BP 114/80 01/16/22 06:42 Pulse Ox 99 01/13/22 11:10 Results & Data ([facility]) Current Inpatient Medications Current Inpatient Medications: Current Inpatient Medications Acetaminophen (Acetaminophen 325 Mg Tab) 650 mg PO Q4H PRN PRN Reason: Headache or Minor Fever Stop: 02/12/22 09:23 Al Hydrox/Mg Hydrox/Simethicone (Aluminum/Magnesium Susp 30 Ml Udc) 30 ml PO Q4H PRN PRN Reason: GI Upset Stop: 02/12/22 09:23 Bismuth Subsalicylate (Bismuth Subsalicylate Liqd 236 Ml) 15 ml PO PRN PRN PRN Reason: Loose Stool Stop: 02/12/22 09:23 Fluoxetine HCl (Fluoxetine Hcl 20 Mg Cap) 20 mg PO QAM MAYCOL Stop: 02/15/22 08:59 Last Admin: 01/16/22 09:14 Dose: 20 mg Documented by: Hydroxyzine HCl (Hydroxyzine Hcl 25 Mg Tab) 50 mg PO HSZ PRN PRN Reason: Insomnia Stop: 02/12/22 09:23 Last Admin: 01/14/22 23:22 Dose: 50 mg Documented by: Hydroxyzine HCl (Hydroxyzine Hcl 25 Mg Tab) 25 mg PO Q4H PRN PRN Reason: Anxiety Stop: 02/12/22 09:23 Magnesium Hydroxide (Magnesium Hydroxide Susp 30 Ml Udc) 30 ml PO DAILY PRN PRN Reason: Constipation Stop: 02/12/22 09:23 Sodium Chloride (Sodium Chloride 0.65% Na Soln 45 Ml ([place])) 1 - 2 sprays NA PRN PRN PRN Reason: Nasal Dryness/Congestion Stop: 02/12/22 09:23 Trazodone HCl (Trazodone Hcl 50 Mg Tab) 50 mg PO HS MAYCOL Stop: 02/14/22 21:59 Last Admin: 01/15/22 22:33 Dose: 50 mg Documented by: Mental Health & Subst Abuse Tx Psychiatrist Name of Psychiatrist: Bessy Florentino Psychiatrist's Date of Appointment with Psychiatrist: 02/13/22 Time of Appointment with Psychiatrist: 12:45pm Therapist Name of Therapist: [facility]'s Date of Therapist Appointment: 01/25/22 Time of Therapist Appointment: 10AM Therapy Appointment Comment: telehealth Framer Name of Framer: [employer] Phone Number for Framer: [phone] Case Management Appointment Comment: [address] [place], [place] Post Discharge Appointments Primary Care Physician Name Of Family Doctor: [facility] Date of Appointment with PCP: 01/21/22 Time of Appointment with PCP: 9am Provider Appointment Comment: [address] [place] [address]
[2022-01-16] MEDS: MIRTAZAPINE TAB 15 MG TAB PO SCH (21:29)
[2022-01-17] MEDS: FLUoxetine HCL 20 MG CAP PO SCH (09:49)
--- NOTE | 2022-01-17 15:48 | Psychiatric Progress Note ---
Date of Service January 17, 2022 Impression / Recommendations Impression The patient is a 21 year old with a history of MDD, CECY with panic attacks, OCD, PTSD and self-harm who was admitted for suicide attempt via cutting requiring sutures. Diagnostically consistent with prior established diagnoses, with worsening of MDD and PTSD in the context of recent stressors and inability to attend therapy due to insurance changes. The patient is deemed unstable and requires psychiatric hospitalization for diagnostic clarification, safety and stabilization, medication management and development of further coping skills. 01/17/22: Continues to have fluctuations in anxiety and depression, becoming slightly more comfortable advocating for herself and discussing concerns/fears. Tolerating fluoxetine well. Mirtazapine helped with sleep but did have episode in the middle of the night consistent with possible restless legs. Will continue to monitor and adjust medications if needed, she reported past history of iron deficiency anemia, reviewed CBC on admission which was normal. (1) Multiple lacerations: (2) Suicidal ideation: (3) Major depressive disorder, recurrent episode with anxious distress: (4) Generalized anxiety disorder with panic attacks: (5) Obsessive compulsive disorder: (6) Post traumatic stress disorder (PTSD): 01/17/22: Continue fluoxetine and mirtazapine. 01/16/22: Continue fluoxetine. Discontinued trazodone. Start mirtazapine 7.5 mg qhs. Reviewed sleep hygiene strategies. 01/15/22: Increase fluoxetine to 20mg qd tomorrow. Discontinue prazosin given concern for hypotension and ineffectiveness. Start trazodone 50mg qhs for insomnia. 01/14/22: Started fluoxetine 10mg qd, prazosin 1mg qhs. Working on getting her re-established with outpatient therapy. 01/13/22: The patient was admitted to the [facility] ([facility] mental health unit) on q15 min checks (behavioral with suicide precautions) for safety. The patient will participate in group, recreational, and milieu therapies and will be offered additional individual and family sessions as clinically appropriate. -fluoxetine 10mg qd -prazosin 1mg qhs Inventory Assets Strengths: motivated to engage with outpatient therapy, employed, no substance use Needs: additional coping skills, medication management Risk Factors Assessment Male: No : Yes Do You Have Access To A Gun?: No Health Problems: No Mental Health Diagnoses: Yes Substance Use Disorders: No Previous Attempt: Yes Previous Attempt; Didn't Tell Anyone: Yes Family History of Suicide: No Previous Psychiatric Hospitalization: No Hopelessness: Yes Smoker: No Protective Factors Assessment Employed: Yes ([employer]) Stable Relationships: Yes Supportive Family: No Interval History Identifying Information RUBENS ELLISON is a 21-year-old woman who currently lives in [place] with her roommate and his family, has a history of self-harm, depression, CECY, OCD, PTSD and was admitted on 01/13/22 08:49 on a 201 voluntary commitment for suicide attempt via cutting with lacerations requiring sutures. Chief Complaint "I'm decent". Review of Systems Sleep Information Total Hours of Sleep: 6 Sleep Comments: pt given trazodone per rn. pt on q-15 minute checks Meal Information Percent Meal Consumed - Breakfast: 95 Percent Meal Consumed - Lunch: 95 Percent Meal Consumed - Dinner: 80 Subjective Subjective Patient was seen & assessed and interval progress reviewed with treatment team nursing and social work. Had a headache last night which improved with acetaminophen. More engaged with peers last night. Discussed her fear that her mood is slightly more stable today but that it could quickly drop back to feeling very depressed as this pattern can often occur. Fell asleep more easily with addition of mirtazapine though had overnight awakening with sense of restlessness in her legs, was able to fall back asleep. No other medication side effects. Physical Exam Psychiatric Orientation: alert and oriented x 3 Apperance: appropriately dressed and appropriately groomed Eye Contact: + fair eye contact Motor Behavior: steady gait and station and no abnormal motor movements Speech: normal rate/rhythm/volume of speech Affect: + depressed affect and + anxious affect Mood: + depressed mood and + anxious mood Thought Process: goal directed thought process Thought Content: reality based without delusions Suicidal Thoughts: denies suicidal thoughts Homicidal Thoughts: denies homicidal thoughts Hallucinations: no auditory hallucinations and no visual hallucinations Cognition: recent memory grossly intact, remote memory grossly intact, attention grossly intact and language grossly intact Estimated Intelligence: consistent with education level Insight: + fair insight Judgement: + fair judgement Vital Signs (Past 24 Hours) Last Vital Signs Temp 36.6 C 01/17/22 06:00 Pulse 71 01/17/22 06:25 Resp 16 01/17/22 06:00 BP 109/71 01/17/22 06:25 Pulse Ox 99 01/13/22 11:10 Results & Data ([facility]) Current Inpatient Medications Current Inpatient Medications: Current Inpatient Medications Acetaminophen (Acetaminophen 325 Mg Tab) 650 mg PO Q4H PRN PRN Reason: Headache or Minor Fever Stop: 02/12/22 09:23 Last Admin: 01/16/22 17:49 Dose: 650 mg Documented by: Al Hydrox/Mg Hydrox/Simethicone (Aluminum/Magnesium Susp 30 Ml Udc) 30 ml PO Q4H PRN PRN Reason: GI Upset Stop: 02/12/22 09:23 Bismuth Subsalicylate (Bismuth Subsalicylate Liqd 236 Ml) 15 ml PO PRN PRN PRN Reason: Loose Stool Stop: 02/12/22 09:23 Fluoxetine HCl (Fluoxetine Hcl 20 Mg Cap) 20 mg PO QAM MAYCOL Stop: 02/15/22 08:59 Last Admin: 01/17/22 09:49 Dose: 20 mg Documented by: Hydroxyzine HCl (Hydroxyzine Hcl 25 Mg Tab) 50 mg PO HSZ PRN PRN Reason: Insomnia Stop: 02/12/22 09:23 Last Admin: 01/14/22 23:22 Dose: 50 mg Documented by: Hydroxyzine HCl (Hydroxyzine Hcl 25 Mg Tab) 25 mg PO Q4H PRN PRN Reason: Anxiety Stop: 02/12/22 09:23 Magnesium Hydroxide (Magnesium Hydroxide Susp 30 Ml Udc) 30 ml PO DAILY PRN PRN Reason: Constipation Stop: 02/12/22 09:23 Mirtazapine (Mirtazapine Tab 15 Mg Tab) 7.5 mg PO HS MAYCOL Stop: 02/15/22 21:59 Last Admin: 01/16/22 21:29 Dose: 7.5 mg Documented by: Sodium Chloride (Sodium Chloride 0.65% Na Soln 45 Ml ([place])) 1 - 2 sprays NA PRN PRN PRN Reason: Nasal Dryness/Congestion Stop: 02/12/22 09:23 Mental Health & Subst Abuse Tx Psychiatrist Name of Psychiatrist: Bessy Florentino Psychiatrist's Date of Appointment with Psychiatrist: 02/13/22 Time of Appointment with Psychiatrist: 12:45pm Therapist Name of Therapist: Honey Guevara Therapist's Date of Therapist Appointment: 01/25/22 Time of Therapist Appointment: 10AM Therapy Appointment Comment: telehealth Hearing Aid Technician Name of Hearing Aid Technician: [employer] Phone Number for Hearing Aid Technician: [phone] Case Management Appointment Comment: [address] [place], [place] Post Discharge Appointments Primary Care Physician Name Of Family Doctor: [facility] Date of Appointment with PCP: 01/21/22 Time of Appointment with PCP: 9am Provider Appointment Comment: [address] [address]
[2022-01-17] MEDS: MIRTAZAPINE TAB 15 MG TAB PO SCH (22:09)
[2022-01-18] MEDS: FLUoxetine HCL 20 MG CAP PO SCH (09:16)
--- NOTE | 2022-01-18 15:39 | Psychiatric Progress Note ---
Date of Service January 18, 2022 Impression / Recommendations Impression The patient is a 21 year old with a history of MDD, CECY with panic attacks, OCD, PTSD and self-harm who was admitted for suicide attempt via cutting requiring sutures. Diagnostically consistent with prior established diagnoses, with worsening of MDD and PTSD in the context of recent stressors and inability to attend therapy due to insurance changes. The patient is deemed unstable and requires psychiatric hospitalization for diagnostic clarification, safety and stabilization, medication management and development of further coping skills. 01/18/22: Continues to have fluctuations in anxiety and depression, becoming slightly more comfortable advocating for herself and discussing concerns/fears. Tolerating fluoxetine wellm no recurrence of restless legs. Mirtazapine helped with sleep but still with some initial onset insomnia, discussed increasing the dose which she consents to. Reviewed potential housing options/resources. (1) Multiple lacerations: (2) Suicidal ideation: (3) Major depressive disorder, recurrent episode with anxious distress: (4) Generalized anxiety disorder with panic attacks: (5) Obsessive compulsive disorder: (6) Post traumatic stress disorder (PTSD): 01/18/22: Increase mirtazapine to 15mg qhs for insomnia. Continue fluoxetine. Reviewed potential housing resources. 01/17/22: Continue fluoxetine and mirtazapine. 01/16/22: Continue fluoxetine. Discontinued trazodone. Start mirtazapine 7.5 mg qhs. Reviewed sleep hygiene strategies. 01/15/22: Increase fluoxetine to 20mg qd tomorrow. Discontinue prazosin given concern for hypotension and ineffectiveness. Start trazodone 50mg qhs for insomnia. 01/14/22: Started fluoxetine 10mg qd, prazosin 1mg qhs. Working on getting her re-established with outpatient therapy. 01/13/22: The patient was admitted to the [facility] ([facility] mental health unit) on q15 min checks (behavioral with suicide precautions) for safety. The patient will participate in group, recreational, and milieu therapies and will be offered additional individual and family sessions as clinically appropriate. -fluoxetine 10mg qd -prazosin 1mg qhs Inventory Assets Strengths: motivated to engage with outpatient therapy, employed, no substance use Needs: additional coping skills, medication management Risk Factors Assessment Male: No : Yes Do You Have Access To A Gun?: No Health Problems: No Mental Health Diagnoses: Yes Substance Use Disorders: No Previous Attempt: Yes Previous Attempt; Didn't Tell Anyone: Yes Family History of Suicide: No Previous Psychiatric Hospitalization: No Hopelessness: Yes Smoker: No Protective Factors Assessment Employed: Yes ([employer]) Stable Relationships: Yes Supportive Family: No Interval History Identifying Information RUBENS ELLISON is a 21-year-old woman who currently lives in [place] with her roommate and his family, has a history of self-harm, depression, CECY, OCD, PTSD and was admitted on 01/13/22 08:49 on a 201 voluntary commitment for suicide attempt via cutting with lacerations requiring sutures. Chief Complaint "I'm just really overwhelmed". Review of Systems Sleep Information Total Hours of Sleep: 7 Sleep Comments: pt given trazodone per rn. pt on q-15 minute checks Meal Information Percent Meal Consumed - Breakfast: 100 Percent Meal Consumed - Lunch: 100 Percent Meal Consumed - Dinner: 80 Subjective Subjective Patient was seen & assessed and interval progress reviewed with treatment team nursing and social work. Continues to be intermittently tearful, easily overwhelmed and anxious. It took her longer to fall asleep last night, wasn't able to read with the light off so ended up lying in bed distracted by her thoughts. Woke up a few times but was able to fall back asleep. No overnight episodes of restless legs. Lacerations are healing well but starting to get a little bit itchy. No side effects from the medication. Physical Exam Psychiatric Orientation: alert and oriented x 3 Apperance: appropriately dressed and appropriately groomed Eye Contact: + fair eye contact Motor Behavior: steady gait and station and no abnormal motor movements Speech: normal rate/rhythm/volume of speech Affect: + depressed affect, + anxious affect and + tearful affect Mood: + depressed mood and + anxious mood Thought Process: goal directed thought process Thought Content: reality based without delusions Suicidal Thoughts: denies suicidal thoughts Homicidal Thoughts: denies homicidal thoughts Hallucinations: no auditory hallucinations and no visual hallucinations Cognition: recent memory grossly intact, remote memory grossly intact, attention grossly intact and language grossly intact Estimated Intelligence: consistent with education level Insight: + fair insight Judgement: + fair judgement Vital Signs (Past 24 Hours) Last Vital Signs Temp 36.6 C 01/18/22 06:00 Pulse 80 01/18/22 06:12 Resp 16 01/18/22 06:00 BP 81/57 L 01/18/22 06:12 Pulse Ox 99 01/13/22 11:10 Results & Data ([facility]) Current Inpatient Medications Current Inpatient Medications: Current Inpatient Medications Acetaminophen (Acetaminophen 325 Mg Tab) 650 mg PO Q4H PRN PRN Reason: Headache or Minor Fever Stop: 02/12/22 09:23 Last Admin: 01/16/22 17:49 Dose: 650 mg Documented by: Al Hydrox/Mg Hydrox/Simethicone (Aluminum/Magnesium Susp 30 Ml Udc) 30 ml PO Q4H PRN PRN Reason: GI Upset Stop: 02/12/22 09:23 Bismuth Subsalicylate (Bismuth Subsalicylate Liqd 236 Ml) 15 ml PO PRN PRN PRN Reason: Loose Stool Stop: 02/12/22 09:23 Fluoxetine HCl (Fluoxetine Hcl 20 Mg Cap) 20 mg PO QAM MAYCOL Stop: 02/15/22 08:59 Last Admin: 01/18/22 09:16 Dose: 20 mg Documented by: Hydroxyzine HCl (Hydroxyzine Hcl 25 Mg Tab) 50 mg PO HSZ PRN PRN Reason: Insomnia Stop: 02/12/22 09:23 Last Admin: 01/14/22 23:22 Dose: 50 mg Documented by: Hydroxyzine HCl (Hydroxyzine Hcl 25 Mg Tab) 25 mg PO Q4H PRN PRN Reason: Anxiety Stop: 02/12/22 09:23 Last Admin: 01/18/22 14:43 Dose: 25 mg Documented by: Magnesium Hydroxide (Magnesium Hydroxide Susp 30 Ml Udc) 30 ml PO DAILY PRN PRN Reason: Constipation Stop: 02/12/22 09:23 Mirtazapine (Mirtazapine Tab 15 Mg Tab) 15 mg PO HS MAYCOL Stop: 02/17/22 21:59 Sodium Chloride (Sodium Chloride 0.65% Na Soln 45 Ml ([place])) 1 - 2 sprays NA PRN PRN PRN Reason: Nasal Dryness/Congestion Stop: 02/12/22 09:23 Zinc Acetate/Diphenhydramine (Diphenhydramine 2%/Zinc 0.1% Cream 28gm Tube) 1 appln EXT BID PRN PRN Reason: Itching Stop: 02/17/22 15:18 Mental Health & Subst Abuse Tx Psychiatrist Name of Psychiatrist: Bessy Florentino Psychiatrist's Date of Appointment with Psychiatrist: 02/13/22 Time of Appointment with Psychiatrist: 12:45pm Therapist Name of Therapist: Honey with Anna Guevara Therapist's Date of Therapist Appointment: 01/25/22 Time of Therapist Appointment: 10AM Therapy Appointment Comment: telehealth Biochemistry Professor Name of Biochemistry Professor: [employer] Phone Number for Biochemistry Professor: [phone] Date of Appointment with Biochemistry Professor: 01/22/22 Time of Appointment with Biochemistry Professor: 1PM Case Management Appointment Comment: [address] [place], [place] Post Discharge Appointments Primary Care Physician Name Of Family Doctor: [facility] Date of Appointment with PCP: 01/21/22 Time of Appointment with PCP: 9am Provider Appointment Comment: [address] [place] [address]
[2022-01-18] MEDS: MIRTAZAPINE TAB 15 MG TAB PO SCH (21:35)
[2022-01-19] MEDS: FLUoxetine HCL 20 MG CAP PO SCH (08:56)
--- NOTE | 2022-01-19 12:06 | Psychiatric Progress Note ---
Date of Service January 19, 2022 Impression / Recommendations Impression The patient is a 21 year old with a history of MDD, CECY with panic attacks, OCD, PTSD and self-harm who was admitted for suicide attempt via cutting requiring sutures. Diagnostically consistent with prior established diagnoses, with worsening of MDD and PTSD in the context of recent stressors and inability to attend therapy due to insurance changes. The patient is deemed unstable and requires psychiatric hospitalization for diagnostic clarification, safety and stabilization, medication management and development of further coping skills. 01/19/22: as per Dr. Suresh above. Remains highly anxious re: safety plan, difficult living situation. (1) Major depressive disorder, recurrent episode with anxious distress: (2) Multiple lacerations: (3) Suicidal ideation: (4) Generalized anxiety disorder with panic attacks: (5) Obsessive compulsive disorder: (6) Post traumatic stress disorder (PTSD): 01/19/22: continue current medications, monitor sleep. Family meeting with roommate. 01/18/22: Increase mirtazapine to 15mg qhs for insomnia. Continue fluoxetine. Reviewed potential housing resources. 01/17/22: Continue fluoxetine and mirtazapine. 01/16/22: Continue fluoxetine. Discontinued trazodone. Start mirtazapine 7.5 mg qhs. Reviewed sleep hygiene strategies. 01/15/22: Increase fluoxetine to 20mg qd tomorrow. Discontinue prazosin given co ncern for hypotension and ineffectiveness. Start trazodone 50mg qhs for insomnia. 01/14/22: Started fluoxetine 10mg qd, prazosin 1mg qhs. Working on getting her re-established with outpatient therapy. 01/13/22: The patient was admitted to the [facility] ([facility] mental health unit) on q15 min checks (behavioral with suicide precautions) for safety. The patient will participate in group, recreational, and milieu therapies and will be offered additional individual and family sessions as clinically appropriate. -fluoxetine 10mg qd -prazosin 1mg qhs Inventory Assets Strengths: motivated to engage with outpatient therapy, employed, no substance use Needs: additional coping skills, medication management Risk Factors Assessment Male: No : Yes Do You Have Access To A Gun?: No Health Problems: No Mental Health Diagnoses: Yes Substance Use Disorders: No Previous Attempt: Yes Previous Attempt; Didn't Tell Anyone: Yes Family History of Suicide: No Previous Psychiatric Hospitalization: No Hopelessness: Yes Smoker: No Protective Factors Assessment Employed: Yes ([employer]) Stable Relationships: Yes Supportive Family: No Interval History Identifying Information RUBENS ELLISON is a 21-year-old woman who currently lives in [place] with her roommate and his family, has a history of self-harm, depression, CECY, OCD, PTSD and was admitted on 01/13/22 08:49 on a 201 voluntary commitment for suicide attempt via cutting with lacerations requiring sutures. Chief Complaint "[]". Review of Systems Sleep Information Total Hours of Sleep: 7 Sleep Comments: pt on q-15 minute checks Meal Information Percent Meal Consumed - Breakfast: 75 Percent Meal Consumed - Lunch: 100 Percent Meal Consumed - Dinner: 100 Subjective Subjective Patient was seen & assessed and interval progress reviewed with [treatment team] [nursing and social work] Physical Exam Psychiatric Orientation: alert and oriented x 3 Apperance: appropriately dressed and appropriately groomed Eye Contact: + fair eye contact Motor Behavior: steady gait and station and no abnormal motor movements Speech: normal rate/rhythm/volume of speech Affect: + depressed affect and + anxious affect Mood: + depressed mood and + anxious mood Thought Process: goal directed thought process Thought Content: reality based without delusions Suicidal Thoughts: denies suicidal thoughts, denies suicidal plan and denies suicidal intent Homicidal Thoughts: denies homicidal thoughts Hallucinations: no auditory hallucinations and no visual hallucinations Cognition: recent memory grossly intact, remote memory grossly intact, attention grossly intact and language grossly intact Estimated Intelligence: consistent with education level Insight: + fair insight Judgement: + fair judgement Vital Signs (Past 24 Hours) Last Vital Signs Temp 37 C 01/19/22 06:35 Pulse 105 H 01/19/22 06:36 Resp 16 01/19/22 06:35 BP 103/65 01/19/22 06:36 Pulse Ox 99 01/13/22 11:10 Results & Data ([facility]) Current Inpatient Medications Current Inpatient Medications: Current Inpatient Medications Acetaminophen (Acetaminophen 325 Mg Tab) 650 mg PO Q4H PRN PRN Reason: Headache or Minor Fever Stop: 02/12/22 09:23 Last Admin: 01/16/22 17:49 Dose: 650 mg Documented by: Al Hydrox/Mg Hydrox/Simethicone (Aluminum/Magnesium Susp 30 Ml Udc) 30 ml PO Q4H PRN PRN Reason: GI Upset Stop: 02/12/22 09:23 Bismuth Subsalicylate (Bismuth Subsalicylate Liqd 236 Ml) 15 ml PO PRN PRN PRN Reason: Loose Stool Stop: 02/12/22 09:23 Fluoxetine HCl (Fluoxetine Hcl 20 Mg Cap) 20 mg PO QAM MAYCOL Stop: 02/15/22 08:59 Last Admin: 01/19/22 08:56 Dose: 20 mg Documented by: Hydroxyzine HCl (Hydroxyzine Hcl 25 Mg Tab) 50 mg PO HSZ PRN PRN Reason: Insomnia Stop: 02/12/22 09:23 Last Admin: 01/14/22 23:22 Dose: 50 mg Documented by: Hydroxyzine HCl (Hydroxyzine Hcl 25 Mg Tab) 25 mg PO Q4H PRN PRN Reason: Anxiety Stop: 02/12/22 09:23 Last Admin: 01/18/22 14:43 Dose: 25 mg Documented by: Magnesium Hydroxide (Magnesium Hydroxide Susp 30 Ml Udc) 30 ml PO DAILY PRN PRN Reason: Constipation Stop: 02/12/22 09:23 Mirtazapine (Mirtazapine Tab 15 Mg Tab) 15 mg PO HS MAYCOL Stop: 02/17/22 21:59 Last Admin: 01/18/22 21:35 Dose: 15 mg Documented by: Sodium Chloride (Sodium Chloride 0.65% Na Soln 45 Ml ([place])) 1 - 2 sprays NA PRN PRN PRN Reason: Nasal Dryness/Congestion Stop: 02/12/22 09:23 Zinc Acetate/Diphenhydramine (Diphenhydramine 2%/Zinc 0.1% Cream 28gm Tube) 1 appln EXT BID PRN PRN Reason: Itching Stop: 02/17/22 15:18 Mental Health & Subst Abuse Tx Psychiatrist Name of Psychiatrist: Bessy Florentino Psychiatrist's Date of Appointment with Psychiatrist: 02/13/22 Time of Appointment with Psychiatrist: 12:45pm Therapist Name of Therapist: Honey Guevara Therapist's Date of Therapist Appointment: 01/25/22 Time of Therapist Appointment: 10AM Therapy Appointment Comment: telehealth Phlebotomist Name of Phlebotomist: [employer] Phone Number for Phlebotomist: [phone] Date of Appointment with Phlebotomist: 01/22/22 Time of Appointment with Phlebotomist: 1PM Case Management Appointment Comment: [address] [place], [place] Post Discharge Appointments Primary Care Physician Name Of Family Doctor: [facility] Date of Appointment with PCP: 01/21/22 Time of Appointment with PCP: 9am Provider Appointment Comment: [address] [place] [address]
[2022-01-19] MEDS: MIRTAZAPINE TAB 15 MG TAB PO SCH (21:45)
[2022-01-20] MEDS: FLUoxetine HCL 20 MG CAP PO SCH (08:53)
--- NOTE | 2022-01-20 09:11 | Psychiatric Progress Note ---
Date of Service January 20, 2022 Impression / Recommendations Impression The patient is a 21 year old with a history of MDD, CECY with panic attacks, OCD, PTSD and self-harm who was admitted for suicide attempt via cutting requiring sutures. Diagnostically consistent with prior established diagnoses, with worsening of MDD and PTSD in the context of recent stressors and inability to attend therapy due to insurance changes. The patient is deemed unstable and requires psychiatric hospitalization for diagnostic clarification, safety and stabilization, medication management and development of further coping skills. 01/20/22: as per Dr. Suresh above. Improving. (1) Major depressive disorder, recurrent episode with anxious distress: (2) Multiple lacerations: (3) Suicidal ideation: (4) Generalized anxiety disorder with panic attacks: (5) Obsessive compulsive disorder: (6) Post traumatic stress disorder (PTSD): 01/20/22: 4 sutures removed. Continue current meds and treatment plan. Declines melatonin. 01/19/22: continue current medications, monitor sleep. Family meeting with roommate. 01/18/22: Increase mirtazapine to 15mg qhs for insomnia. Continue fluoxetine. Reviewed potential housing resources. 01/17/22: Continue fluoxetine and mirtazapine. 01/16/22: Continue fluoxetine. Discontinued trazodone. Start mirtazapine 7.5 mg qhs. Reviewed sleep hygiene strategies. 01/15/22: Increase fluoxetine to 20mg qd tomorrow. Discontinue prazosin given concern for hypotension and ineffectiveness. Start trazodone 50mg qhs for insomnia. 01/14/22: Started fluoxetine 10mg qd, prazosin 1mg qhs. Working on getting her re-established with outpatient therapy. 01/13/22: The patient was admitted to the [facility] ([facility] mental health unit) on q15 min checks (behavioral with suicide precautions) for safety. The patient will participate in group, recreational, and milieu therapies and will be offered additional individual and family sessions as clinically appropriate. -fluoxetine 10mg qd -prazosin 1mg qhs Inventory Assets Strengths: motivated to engage with outpatient therapy, employed, no substance use Needs: additional coping skills, medication management Risk Factors Assessment Male: No : Yes Do You Have Access To A Gun?: No Health Problems: No Mental Health Diagnoses: Yes Substance Use Disorders: No Previous Attempt: Yes Previous Attempt; Didn't Tell Anyone: Yes Family History of Suicide: No Previous Psychiatric Hospitalization: No Hopelessness: Yes Smoker: No Protective Factors Assessment Employed: Yes ([employer]) Stable Relationships: Yes Supportive Family: No Interval History Identifying Information RUBENS ELLISON is a 21-year-old woman who currently lives in [place] with her roommate and his family, has a history of self-harm, depression, CECY, OCD, PTSD and was admitted on 01/13/22 08:49 on a 201 voluntary commitment for suicide attempt via cutting with lacerations requiring sutures. Chief Complaint "I was able to state my needs". Review of Systems Sleep Information Total Hours of Sleep: 5 Sleep Comments: pt on q-15 minute checks Meal Information Percent Meal Consumed - Breakfast: 75 Percent Meal Consumed - Lunch: 100 Percent Meal Consumed - Dinner: 100 Subjective Subjective Patient was seen & assessed and interval progress reviewed with nursing and social work. She has been hospitalized 1 week and left wrist wound is healed and stitches get caught on clothes, etc. had appt with PCP for 01/21 for removal. Justen andres suture removal kit requested to unit and I removed 4 sutures with knots without incident/bleeding. The patient was bright in discussing looking forward to seeing her cat. She continues to be a light sleeper and admittedly goes to bed much earlier here than she does at home so likely a contributing factor. Physical Exam Psychiatric Orientation: alert and oriented x 3 Apperance: appropriately dressed and appropriately groomed Eye Contact: + fair eye contact Motor Behavior: steady gait and station and no abnormal motor movements Speech: normal rate/rhythm/volume of speech Affect: euthymic affect Mood: + anxious mood Thought Process: goal directed thought process Thought Content: reality based without delusions Suicidal Thoughts: denies suicidal thoughts, denies suicidal plan and denies suicidal intent Homicidal Thoughts: denies homicidal thoughts Hallucinations: no auditory hallucinations and no visual hallucinations Cognition: recent memory grossly intact, remote memory grossly intact, attention grossly intact and language grossly intact Estimated Intelligence: consistent with education level Insight: + fair insight Judgement: + fair judgement Vital Signs (Past 24 Hours) Last Vital Signs Temp 36.9 C 01/20/22 06:44 Pulse 102 H 01/20/22 06:45 Resp 16 01/20/22 06:44 BP 104/58 L 01/20/22 06:45 Pulse Ox 99 01/13/22 11:10 Results & Data ([facility]) Current Inpatient Medications Current Inpatient Medications: Current Inpatient Medications Acetaminophen (Acetaminophen 325 Mg Tab) 650 mg PO Q4H PRN PRN Reason: Headache or Minor Fever Stop: 02/12/22 09:23 Last Admin: 01/16/22 17:49 Dose: 650 mg Documented by: Al Hydrox/Mg Hydrox/Simethicone (Aluminum/Magnesium Susp 30 Ml Udc) 30 ml PO Q4H PRN PRN Reason: GI Upset Stop: 02/12/22 09:23 Bismuth Subsalicylate (Bismuth Subsalicylate Liqd 236 Ml) 15 ml PO PRN PRN PRN Reason: Loose Stool Stop: 02/12/22 09:23 Fluoxetine HCl (Fluoxetine Hcl 20 Mg Cap) 20 mg PO QAM MAYCOL Stop: 02/15/22 08:59 Last Admin: 01/20/22 08:53 Dose: 20 mg Documented by: Hydroxyzine HCl (Hydroxyzine Hcl 25 Mg Tab) 50 mg PO HSZ PRN PRN Reason: Insomnia Stop: 02/12/22 09:23 Last Admin: 01/14/22 23:22 Dose: 50 mg Documented by: Hydroxyzine HCl (Hydroxyzine Hcl 25 Mg Tab) 25 mg PO Q4H PRN PRN Reason: Anxiety Stop: 02/12/22 09:23 Last Admin: 01/18/22 14:43 Dose: 25 mg Documented by: Magnesium Hydroxide (Magnesium Hydroxide Susp 30 Ml Udc) 30 ml PO DAILY PRN PRN Reason: Constipation Stop: 02/12/22 09:23 Mirtazapine (Mirtazapine Tab 15 Mg Tab) 15 mg PO HS MAYCOL Stop: 02/17/22 21:59 Last Admin: 01/19/22 21:45 Dose: 15 mg Documented by: Sodium Chloride (Sodium Chloride 0.65% Na Soln 45 Ml ([place])) 1 - 2 sprays NA PRN PRN PRN Reason: Nasal Dryness/Congestion Stop: 02/12/22 09:23 Zinc Acetate/Diphenhydramine (Diphenhydramine 2%/Zinc 0.1% Cream 28gm Tube) 1 appln EXT BID PRN PRN Reason: Itching Stop: 02/17/22 15:18 Mental Health & Subst Abuse Tx Psychiatrist Name of Psychiatrist: [facility] Psychiatrist's Date of Appointment with Psychiatrist: 02/13/22 Time of Appointment with Psychiatrist: 12:45pm Therapist Name of Therapist: Honey Sweeney and Therapist's Date of Therapist Appointment: 01/25/22 Time of Therapist Appointment: 10AM Therapy Appointment Comment: telehealth Direct Entry Midwife Name of Direct Entry Midwife: [employer] Phone Number for Direct Entry Midwife: [phone] Date of Appointment with Direct Entry Midwife: 01/22/22 Time of Appointment with Direct Entry Midwife: 1PM Case Management Appointment Comment: [address] [place], [place] Post Discharge Appointments Primary Care Physician Name Of Family Doctor: [facility] Date of Appointment with PCP: 01/21/22 Time of Appointment with PCP: 9am Provider Appointment Comment: [address] [place] [address]
[2022-01-20] MEDS: MIRTAZAPINE TAB 15 MG TAB PO SCH (22:05)
[2022-01-21 06:52] VITALS: BP 115/74; TEMP 98.6
[2022-01-21] MEDS: FLUoxetine HCL 20 MG CAP PO SCH (08:42)
--- NOTE | 2022-01-21 10:17 | Discharge Summary ---
Date of Service January 21, 2022 History of Present Illness As per Dr. Suresh on admission: Therese presented to the ED after cutting her left forearm, as part of intensifying self-harm and suicide attempt via cutting, which required 4 sutures. Intensifying SI and self-harming occurred in the context of multiple stressors including an argument with her roommate, extensive childhood and family trauma and financial strain. She lives with her ex-boyfriend their argument lead him to leave the home and she felt overwhelmed and "my brain just sort of spiraled" and she attempted suicide via cutting. Her roommate later returned, found her bleeding and called 911. She endorses symptoms of depression including tearfulness, low mood, decreased sleep with initial onset insomnia and frequent awakenings, low energy, lack of motivation and numbness as the most difficult. She experiences SI on average 3-4 times per week which is a decrease from previous months. Sometimes passive SI and sometimes more active to the point of thinking of when she might or thinking of plans like drinking alcohol and falling asleep in the bath after cutting herself and bleeding or taking a space heater into the bath. She can describe reasons for living including her cat [place]. She also endorses a history of self-harming via restricting food, pulling her hair, skin picking, and cutting to her ribcage or thigh; most recently has been self-harming via cutting her arms but it had been 49 days since she had self-harmed up until her suicide attempt. She experiences high levels of anxiety including frequent panic attacks which occur typically 1-2 times per month. She also endorses OCD symptoms of frequent handwashing and contamination concerns which occupy a lot of her routines so it's difficult to put a daily time amount on it, she often has to wash her hands 12 times after using the bathroom and needs to change her clothes frequently throughout the day. She endorses PTSD symptoms of nightmares (they've decreased now 1-2 times per week), flashbacks (about once per month) and avoidance. Psychiatric ROS notable for denial of dagoberto and psychosis. Physical Exam Psychiatric See admission H&P and DOD assessment. Vital Signs (Past 24 Hours) Last Vital Signs Temp 37.0 C 01/21/22 06:49 Pulse 69 01/21/22 06:50 Resp 18 01/21/22 06:49 BP 115/74 01/21/22 06:50 Pulse Ox 99 01/13/22 11:10 Principal Diagnosis Major depressive disorder Psychiatric Data See daily stay summary. In short, safety was maintained and the patient was cooperative with care. Medication changes included starting Prozac and Remeron and they tolerated this well. Sleep was improved overall but generally disrupted on the unit as light sleeper. She found Vistaril prn helpful for sleep and anxiety. A family session was held with her roommate (ex) prior to discharge in which she was able to set some physical boundaries/expectations for return home and she completed paperwork necessary for housing as would like to move soon. A safety plan was completed prior to discharge. Sutures from self-inflicted lac were removed 01/20/22 after 1 week, healing well. Day of Discharge Assessment Today the patient voices readiness for discharge. They note improvement in mood and deny thoughts to harm self or others. Thoughts remain organized and they are improved from admission. There is no evidence of psychosis. They agree to take mediations as prescribed and keep follow-up appointments. They are stable for discharge to outpatient level of care. Transition of Care Transition Of Care Record: was reviewed with the patient Advance Directives Advance Directives Information Provided: Yes Advance Directives: No Mental Health Advance Directive: No Advance Directives on File: No Living Will: No Power of Web Sizer: No Advance Directives Reason:: Declines as Mental Health Visit. Risk Factors Assessment Male: No : Yes Do You Have Access To A Gun?: No Health Problems: No Mental Health Diagnoses: Yes Substance Use Disorders: No Previous Attempt: Yes Previous Attempt; Didn't Tell Anyone: Yes Family History of Suicide: No Previous Psychiatric Hospitalization: No Hopelessness: Yes Smoker: No Protective Factors Assessment Employed: Yes ([employer]) Stable Relationships: Yes Supportive Family: No Tobacco Cessation at Discharge Tobacco Cessation Medication Prescribed at Discharge: Not Applicable/Non-Smoker Total Time Total Time Spent: Greater Than 30 Minutes Total Time Includes: Examination of the patient, Discharge Planning and Medication Reconciliation Discharge Data Lab Results 01/13/22 01/13/22 01/13/22 01:26 01:26 03:15 WBC 9.27 RBC 4.75 Hgb 13.8 Hct 41.4 MCV 87.2 MCH 29.1 MCHC 33.3 RDW Std Deviation 40.4 RDW Coeff of Krish 12.6 Plt Count 226 MPV 9.4 Immature Gran % (Auto) 0.1 Neut % (Auto) 66.4 Lymph % (Auto) 24.7 [place] % (Auto) 7.1 Eos % (Auto) 1.2 Baso % (Auto) 0.5 Neut # (Auto) 6.15 Lymph # (Auto) 2.29 [place] # (Auto) 0.66 H Eos # (Auto) 0.11 Baso # (Auto) 0.05 Immature Gran # (Auto) 0.01 Sodium Potassium Chloride Carbon Dioxide Anion Gap BUN Creatinine Est Cr Clr Drug Dosing Est GFR ( Amer) Est GFR (Non-Af Amer) BUN/Creatinine Ratio Glucose Calcium Total Bilirubin AST ALT Alkaline Phosphatase Total Protein Albumin Globulin Albumin/Globulin Ratio TSH HCG, Qual Urine Color Yellow Urine Appearance Clear Urine pH 6.5 Ur Specific [place] 1.023 Urine Protein Negative Urine Glucose (UA) Negative Urine Ketones Trace H Urine Blood Negative Urine Nitrite Negative Urine Bilirubin Negative Urine Urobilinogen Negative Ur Leukocyte Esterase Negative Salicylates Urine Opiates Screen Neg Ur Methadone, Qual Neg Acetaminophen Urine Barbiturates Neg Ur Phencyclidine (PCP) Neg U Amphetamin/Meth Scrn Neg MDMA (Ecstasy) Screen Neg U Benzodiazepines Scrn Neg Ur Cocaine Metabolite Neg U Marijuana (THC) Screen Neg Ethyl Alcohol mg/dL SARS-CoV-2, RNA, NAAT 01/13/22 01/13/22 01/13/22 03:15 03:15 03:15 WBC RBC Hgb Hct MCV MCH MCHC RDW Std Deviation RDW Coeff of Krish Plt Count MPV Immature Gran % (Auto) Neut % (Auto) Lymph % (Auto) [place] % (Auto) Eos % (Auto) Baso % (Auto) Neut # (Auto) Lymph # (Auto) [place] # (Auto) Eos # (Auto) Baso # (Auto) Immature Gran # (Auto) Sodium 138 Potassium 3.8 Chloride 106 Carbon Dioxide 24 Anion Gap 8 BUN 8 Creatinine 0.79 Est Cr Clr Drug Dosing 99.7 Est GFR ( Amer) 122.3 Est GFR (Non-Af Amer) 105.5 BUN/Creatinine Ratio 10.1 Glucose 104 H Calcium 9.3 Total Bilirubin 0.6 AST 14 ALT 6 L Alkaline Phosphatase 35 Total Protein 7.1 Albumin 4.6 Globulin 2.5 Albumin/Globulin Ratio 1.8 TSH 3.740 HCG, Qual Urine Color Urine Appearance Urine pH Ur Specific [place] Urine Protein Urine Glucose (UA) Urine Ketones Urine Blood Urine Nitrite Urine Bilirubin Urine Urobilinogen Ur Leukocyte Esterase Salicylates < 3.0 L Urine Opiates Screen Ur Methadone, Qual Acetaminophen < 3 L Urine Barbiturates Ur Phencyclidine (PCP) U Amphetamin/Meth Scrn MDMA (Ecstasy) Screen U Benzodiazepines Scrn Ur Cocaine Metabolite U Marijuana (THC) Screen Ethyl Alcohol mg/dL SARS-CoV-2, RNA, NAAT 01/13/22 01/13/22 01/13/22 03:15 03:15 03:15 WBC RBC Hgb Hct MCV MCH MCHC RDW Std Deviation RDW Coeff of Krish Plt Count MPV Immature Gran % (Auto) Neut % (Auto) Lymph % (Auto) [place] % (Auto) Eos % (Auto) Baso % (Auto) Neut # (Auto) Lymph # (Auto) [place] # (Auto) Eos # (Auto) Baso # (Auto) Immature Gran # (Auto) Sodium Potassium Chloride Carbon Dioxide Anion Gap BUN Creatinine Est Cr Clr Drug Dosing Est GFR ( Amer) Est GFR (Non-Af Amer) BUN/Creatinine Ratio Glucose Calcium Total Bilirubin AST ALT Alkaline Phosphatase Total Protein Albumin Globulin Albumin/Globulin Ratio TSH HCG, Qual Negative Urine Color Urine Appearance Urine pH Ur Specific [place] Urine Protein Urine Glucose (UA) Urine Ketones Urine Blood Urine Nitrite Urine Bilirubin Urine Urobilinogen Ur Leukocyte Esterase Salicylates Urine Opiates Screen Ur Methadone, Qual Acetaminophen Urine Barbiturates Ur Phencyclidine (PCP) U Amphetamin/Meth Scrn MDMA (Ecstasy) Screen U Benzodiazepines Scrn Ur Cocaine Metabolite U Marijuana (THC) Screen Ethyl Alcohol mg/dL < 10.0 SARS-CoV-2, RNA, NAAT NEGATIVE Hospital Course (1) Major depressive disorder, recurrent episode with anxious distress: (2) Multiple lacerations: (3) Suicidal ideation: (4) Generalized anxiety disorder with panic attacks: (5) Obsessive compulsive disorder: (6) Post traumatic stress disorder (PTSD): 01/20/22: 4 sutures removed. Continue current meds and treatment plan. Declines melatonin. 01/19/22: continue current medications, monitor sleep. Family meeting with roommate. 01/18/22: Increase mirtazapine to 15mg qhs for insomnia. Continue fluoxetine. Reviewed potential housing resources. 01/17/22: Continue fluoxetine and mirtazapine. 01/16/22: Continue fluoxetine. Discontinued trazodone. Start mirtazapine 7.5 mg qhs. Reviewed sleep hygiene strategies. 01/15/22: Increase fluoxetine to 20mg qd tomorrow. Discontinue prazosin given c oncern for hypotension and ineffectiveness. Start trazodone 50mg qhs for insomnia. 01/14/22: Started fluoxetine 10mg qd, prazosin 1mg qhs. Working on getting her re-established with outpatient therapy. 01/13/22: The patient was admitted to the [facility] ([facility] inpatient mental health unit) on q15 min checks (behavioral with suicide precautions) for safety. The patient will participate in group, recreational, and milieu therapies and will be offered additional individual and family sessions as clinically appropriate. -fluoxetine 10mg qd -prazosin 1mg qhs Mental Health & Subst Abuse Tx Psychiatrist Name of Psychiatrist: Bessy Florentino Psychiatrist's Date of Appointment with Psychiatrist: 02/13/22 Time of Appointment with Psychiatrist: 12:45pm Psychiatric Appointment Comment: [address] [facility], [place] [address], [facility] [address] Therapist Name of Therapist: Honey Guevara Therapist's Date of Therapist Appointment: 01/25/22 Time of Therapist Appointment: 10AM Therapy Appointment Comment: telehealth [employer] [employer] Name of Supervisor [employer]: [facility] Phone Number for Supervisor [employer]: [phone] Date of Appointment with Supervisor [employer]: 01/22/22 Time of Appointment with Supervisor [employer]: 1PM Case Management Appointment Comment: [address] [place], [place] Post Discharge Appointments Primary Care Physician Name Of Family Doctor: Percy Bonds [facility] Date of Appointment with PCP: 01/21/22 Time of Appointment with PCP: Follow up with PCP as needed. Provider Appointment Comment: [facility] [place] [address] Smoking Cessation Counseling Tobacco Cessation Medication Prescribed at Discharge: Not Applicable/Non-Smoker Contact Information Discharge Discharge Address: [address] [place] [id number] Discharge Plan Discharge Items Patient Disposition: Home - Self-Care Reason For Visit: MAJOR DEPRESSIVE DISORDER Discharge Diagnosis: major depressive disorder Activity: Resume your previous activity Non-emergency contact: Primary Care Provider, Psychiatrist and Therapist Call non-emergency contact if: you have any medication questions and your symptoms worsen Follow-up/Referrals: Troy Bonds MD [Primary Care Provider] - Diet: Regular Addtl Attending Provider Instructions: SPECIAL CARE INSTRUCTIONS: 1. Follow through with your scheduled aftercare appointments. If unable to keep an appointment, please call to reschedule. 2. Take your medication only as prescribed. Medication should not be changed or stopped without the approval of your doctor. In the event of worsening symptoms or concerns about side effects, contact your doctor immediately. 3. Utilize new healthy coping skills, anger management skills, and stress management skills learned during your hospitalization. Journal feelings and process them with a support person. Identify stressors or situations that may result in relapse, deterioration or inappropriate behaviors and develop a plan to deal with those issues. 4. If your coping skills are ineffective and you are in crisis, contact your outpatient providers for direction. If unable to reach your providers, please call the [facility] CRISIS LINE AT , go to the [facility] walk-in center at [address] [place] [address], [facility], or go to the closest Emergency Room. 5. Avoid alcohol and un-prescribed drugs. 6. You have been provided with the Mental Health Advance Directives Pamphlet for your review. 7. Your condition is stable for discharge to outpatient level of care, but recovery is an ongoing process. Ifthoughts to harm yourself or others return, follow the safety plan developed during your stay. Planning for a safe return home includes securing weapons. Our treatment team recommends weaponsbe removed from the home until your outpatient provider reassesses your progress. In rare cases where the items themselvescannot be removed, guns and ammunitionshould be secured separatelyand keys stored by a reliable personoutside of the home. If you were admitted on an involuntary commitment, the police or other legal authorities may be involved in this process. AFTERCARE APPOINTMENTS: * Please call your insurance company prior to your scheduled appointment to confirm your aftercare providers are covered. Take your insurance information to your appointments. WHO TO CALL AND WHEN: Medical Emergencies: For questions or emergencies related to your hospital stay, please contact the Inpatient Behavioral Health Unit at [phone]. A cylinder checker is on-call 16/06 for the Behavioral Health Unit for emergencies At any time you feel your situation is an emergency, you may also call 911 immediately. Pending Studies at Discharge: No Stand-Alone Forms: [facility], Smoking Cessation Medications and DC Order Prescriptions: New hydroxyzine HCl 25 mg Tablet 25 mg PO Q4H PRN (Reason: anxiety/insomnia) Qty: 30 RF: 0 fluoxetine 20 mg Capsule 20 mg PO QAM 30 Days Qty: 30 RF: 0 mirtazapine 15 mg Tablet 15 mg PO HS 30 Days Qty: 30 RF: 0 Discharge Orders: Discharge Order (Routine); Ordered 01/21/22 Ordered By: Isabelle Jha Admission Data Admit Date/Time: 01/13/22 08:49 Attending Provider: Isabelle Jha Admit Provider: Mayra Suresh Primary Care Provider: Troy Bonds Other Interventions: Discharge Summary Assessment (RN) Last Done: 01/21/22 11:45 PSY Interdisciplinary Discharge Planning Last Done: 01/21/22 12:27 Coding Level of Care Code 90871 D/C day mgmt > 30 min Diagnoses Major depressive disorder, recurrent episode with anxious distress F33.9 Multiple lacerations T07.XXXA Suicidal ideation R45.851 Generalized anxiety disorder with panic attacks F41.1; F41.0 Obsessive compulsive disorder F42.9 Post traumatic stress disorder (PTSD) F43.10
[2022-01-21 11:48] VITALS: PULSE 77
== END 2022-01-21 13:37 | disposition home or self-care (01) | DRG 885 ==
LOC: ED 01:15 → SUATTDRO 08:49 → 3S 08:49
DX: F43.10 Post-traumatic stress disorder, unspecified; F42.9 Obsessive-compulsive disorder, unspecified; F33.9 Major depressive disorder, recurrent, unspecified; F41.1 Generalized anxiety disorder